=== PATIENT | male | born 1995 | race Caucasian/White ===

== ENCOUNTER 2023-12-23 12:21 | Emergency (ER) | payer OTHER ==
--- NOTE | 2023-12-23 12:48 | ED ---
Abdominal Pain HPI - General Source: patient, family, RN notes reviewed Mode of arrival: ambulatory Limitations: no limitations <Johana Milan - Last Filed: 12/23/23 12:47> <Louie Melendez - Last Filed: 12/23/23 21:16> - General Chief Complaint: Abdominal Pain Stated Complaint: Abdominal Pain Time Seen by Provider: 12/23/23 12:47 - History of Present Illness Initial Comments: Quick note: 28-year-old male presenting to the ER with chief complaint of a hernia. Patient was seen by urgent care recently and diagnosed with an inguinal hernia. He states it has been more painful recently which brought him to the E R. Admits to flatulence and bowel movements. (Johana Milan) Otherwise healthy 28-year-old male presents to the ED with complaints of lower abdominal pain. Patient reports for the past few weeks has had pain of his right lower abdomen near his groin. States that he went to an urgent care 3 days ago and was told he may have a small hernia. Since then, pain has become more constant in nature. Reports pain is also seem to increase in severity. Notes no changes in bowel movements however does note that he is having some urinary hesitancy. Otherwise denies dysuria or hematuria. No fever or chills. Other than the area which she localizes pain, otherwise denies abdominal pain. No nausea or vomiting. No other complaints at this time. (Louie Melendez) - Related Data Previous Rx's Medication Instructions Recorded HYDROcodone/APAP 5-325MG [[place] 5] 1 each PO Q6HR PRN #12 tab 12/23/23 Ondansetron Odt [Zofran Odt] 4 mg PO Q8HR PRN #10 tab 12/23/23 Tamsulosin [Flomax] 0.4 mg PO DAILY #7 cap 12/23/23 Allergies Allergy/AdvReac Type Severity Reaction Status Date / Time No Known Allergies Allergy Verified 01/31/14 12:43 Review of Systems ROS Other: All systems not noted in ROS Statement are negative. <Johana Milan - Last Filed: 12/23/23 12:47> ROS Other: All systems not noted in ROS Statement are negative. <Louie Melendez - Last Filed: 12/23/23 21:16> ROS Statement: Those systems with pertinent positive or pertinent negative responses have been documented in the HPI. Past Medical History Past Medical History: No Reported History History of Any Multi-Drug Resistant Organisms: None Reported Past Surgical History: Orthopedic Surgery Additional Past Surgical History / Comment(s): RT KNEE ACL Past Psychological History: No Psychological Hx Reported Smoking Status: Never smoker Past Alcohol Use History: None Reported, Unable to Obtain Past Drug Use History: None Reported <Johana Milan - Last Filed: 12/23/23 12:47> General Exam Limitations: no limitations <Johana Milan - Last Filed: 12/23/23 12:47> General appearance: alert, in no apparent distress Eye exam: Present: normal appearance Neck exam: Present: normal inspection Respiratory exam: Present: normal lung sounds bilaterally Cardiovascular Exam: Present: regular rate GI/Abdominal exam: Present: soft (No significant tenderness to palpation. In the right inguinal area where patient localizes pain, no large hernia upon Valsalva. No overlying skin changes.) Neurological exam: Present: alert, oriented X3 Skin exam: Present: warm, dry <Louie Melendez - Last Filed: 12/23/23 21:16> - General Exam Comments Initial Comments: Visual Physical Exam Vital signs reviewed General: Well-appearing, nontoxic, no acute distress. Head: Normocephalic, atraumatic Eyes: PERRLA, EOMI ENT: Airway patent Chest: Nonlabored breathing Skin: No visual rash, normal skin tone Neuro: Alert and oriented 3 Musculoskeletal: No gross abnormalities (Johana Milan) Course Vital Signs 12/23/23 12/23/23 12:34 19:00 Temperature 98.0 F 98.2 F Pulse Rate 97 67 Respiratory 16 18 Rate Blood Pressure 150/92 141/88 O2 Sat by Pulse 99 99 Oximetry Medical Decision Making <Johana Milan - Last Filed: 12/23/23 12:47> - Lab Data Result diagrams: 12/23/23 17:02 12/23/23 17:02 <Louie Melendez - Last Filed: 12/23/23 21:16> - Medical Decision Making I performed the quick note portion of this chart. Electronically signed by Johana Milan PA-C (Johana Milan) Was pt. sent in by a medical professional or institution (NATASHA Valdes, WEIGHT REDUCING TECHNICIAN, urgent care, hospital, or shelter...) When possible be specific @ -No Did you speak to anyone other than the patient for history (EMS, parent, family, police, friend...)? What history was obtained from this source @ -No Did you review nursing and triage notes (agree or disagree)? Why? @ -I reviewed and agree with nursing and triage notes Were old charts reviewed (outside hosp., previous admission, EMS record, old EKG, old radiological studies, urgent care reports/EKG's, shelter records)? Report findings @ -No old charts were reviewed Differential Diagnosis (chest pain, altered mental status, abdominal pain women, abdominal pain men, vaginal bleeding, weakness, fever, dyspnea, syncope, headache, dizziness, GI bleed, back pain, seizure, CVA, palpatations, mental health, musculoskeletal)? @ -Differential Abdominal Pain Men: Appendicitis, cholecystitis, diverticulosis, ischemic bowel, pancreatitis, hep atitis, UTI, gastroenteritis, AAA, incarcerated hernia, bowel obstruction, constipation, inflammatory bowel, hepatitis, peptic ulcer disease, splenic infarction, perforated viscus, testicular torsion, this is not meant to be an all-inclusive list EKG interpreted by me (3pts min.). @ -None X-rays interpreted by me (1pt min.). @ -None done CT interpreted by me (1pt min.). @ -CT abdomen pelvis interpreted me which reveals no hernia or evidence of bowel obstruction. Appendix appears normal. There is finding of asymmetric dilation of the right renal pelvis and right ureter. U/S interpreted by me (1pt. min.). @ -Ultrasound interpreted by me which revealed dilation of the right renal pelvis. No masses seen. No evidence of stone. What testing was considered but not performed or refused? (CT, X-rays, U/S, labs)? Why? @ -None What meds were considered but not given or refused? Why? @ -None Did you discuss the management of the patient with other professionals (professionals i.e. NATASHA Valdes, WEIGHT REDUCING TECHNICIAN, lab, RT, psych nurse, social welfare research worker, production mechanic, teacher, commissioned fire officer, family service caseworker)? Give summary @ -No Was smoking cessation discussed for >3mins.? @ -No Was critical care preformed (if so, how long)? @ -No Were there social determinants of health that impacted care today? How? (Homelessness, low income, unemployed, alcoholism, drug addiction, transportation, low edu. Level, literacy, decrease access to med. care, longterm, rehab)? @ -No Was there de-escalation of care discussed even if they declined (Discuss DNR or withdrawal of care, Hospice)? DNR status @ -No What co-morbidities impacted this encounter? (DM, HTN, Smoking, COPD, CAD, Cancer, CVA, ARF, Chemo, Hep., AIDS, mental health diagnosis, sleep apnea, morbid obesity)? @ -None Was patient admitted / discharged? Hospital course, mention meds given and route, prescriptions, significant lab abnormalities, going to OR and other pertinent info. @ -Discharge 28-year-old male presenting to the ED with complaints of lower abdominal pain for the past few weeks however more recently seeming to have worsened in nature. Also noted some urinary hesitancy. Otherwise, no dysuria, hematuria, frequency, urgency. Laboratory studies reviewed. Labs including CBC, CMP, UA unremarkable. CT and ultrasound demonstrated dilation of the right renal pelvis and right ureter possibly consistent with passed stone. At this time, patient reports no significant pain and denied analgesics here in the ED. Patient discharged home with prescriptions for [place], Flomax, Zofran and a urinary strainer. Symptoms possibly due to passed stone. Provided referral to see urology. Discussed return precautions with patient who verbalized agreement. Undiagnosed new problem with uncertain prognosis? @ -No Drug Therapy requiring intensive monitoring for toxicity (Heparin, Nitro, Insulin, Cardizem)? @ -No Were any procedures done? @ -No Diagnosis/symptom? @ -Right lower abdominal pain, urinary hesitancy Acute, or Chronic, or Acute on Chronic? @ -Acute Uncomplicated (without systemic symptoms) or Complicated (systemic symptoms)? @ -Uncomplicated Side effects of treatment? @ -No Exacerbation, Progression, or Severe Exacerbation? @ -No Poses a threat to life or bodily function? How? (Chest pain, USA, GA, pneumonia, PE, COPD, DKA, ARF, appy, cholecystitis, CVA, Diverticulitis, Homicidal, Suicidal, threat to staff... and all critical care pts) @ -No (Louie Melendez) - Lab Data Lab Results 12/23/23 12/23/23 12/23/23 Range/Units 17:02 17:02 17:41 WBC 4.8 (3.8-10.6) k/uL RBC 4.75 (4.30-5.90) m/uL Hgb 15.7 (13.0-17.5) gm/dL Hct 45.0 (39.0-53.0) % MCV 94.7 (80.0-100.0) fL MCH 33.0 (25.0-35.0) pg MCHC 34.9 (31.0-37.0) g/dL RDW 12.7 (11.5-15.5) % Plt Count 244 (150-450) k/uL MPV 7.3 Neutrophils % 56 % Lymphocytes % 32 % Monocytes % 7 % Eosinophils % 2 % Basophils % 1 % Neutrophils # 2.7 (1.3-7.7) k/uL Lymphocytes # 1.5 (1.0-4.8) k/uL Monocytes # 0.3 (0-1.0) k/uL Eosinophils # 0.1 (0-0.7) k/uL Basophils # 0.1 (0-0.2) k/uL Sodium 140 (137-145) mmol/L Potassium 4.4 (3.5-5.1) mmol/L Chloride 105 (98-107) mmol/L Carbon Dioxide 27 (22-30) mmol/L Anion Gap 8 mmol/L BUN 10 (9-20) mg/dL Creatinine 1.04 (0.66-1.25) mg/dL Est GFR (CKD-EPI)AfAm >90 (>60 ml/min/1.73 sqM) Est GFR (CKD-EPI)NonAf >90 (>60 ml/min/1.73 sqM) Glucose 96 (74-99) mg/dL Calcium 9.5 (8.4-10.2) mg/dL Total Bilirubin 0.9 (0.2-1.3) mg/dL AST 101 H (17-59) U/L ALT 247 H (4-49) U/L Alkaline Phosphatase 76 (38-126) U/L Total Protein 7.6 (6.3-8.2) g/dL Albumin 4.7 (3.5-5.0) g/dL Urine Color Colorless Urine Appearance Clear (Clear) Urine pH 7.0 (5.0-8.0) Ur Specific [place] 1.016 (1.001-1.035) Urine Protein Negative (Negative) Urine Glucose (UA) Negative (Negative) Urine Ketones Negative (Negative) Urine Blood Negative (Negative) Urine Nitrite Negative (Negative) Urine Bilirubin Negative (Negative) Urine Urobilinogen <2.0 (<2.0) mg/dL Ur Leukocyte Esterase Negative (Negative) Disposition <Johana Milan - Last Filed: 12/23/23 12:47> Is patient prescribed a controlled substance at d/c from ED?: Yes When asked, does pt state using other controlled substances?: No If prescribed controlled substance>3 days was MAPS reviewed?: Prescribed <3 Days Time of Disposition: 21:16 <Louie Melendez - Last Filed: 12/23/23 21:16> Clinical Impression: Abdominal pain, Urinary hesitancy Disposition: HOME SELF-CARE Condition: Good Additional Instructions: Please return to the Emergency Department if symptoms worsen or any other con cerns. Please follow-up with urology. Prescriptions: Tamsulosin [Flomax] 0.4 mg PO DAILY #7 cap HYDROcodone/APAP 5-325MG [[place] 5] 1 each PO Q6HR PRN #12 tab PRN Reason: Pain Ondansetron Odt [Zofran Odt] 4 mg PO Q8HR PRN #10 tab PRN Reason: Nausea Referrals: None,Stated [Primary Care Provider] - 1-2 days Marin Farias MD [STAFF PHYSICIAN] - 1-2 days
[2023-12-23] MEDS: SODIUM CHLORIDE 0.9% 1,000 ML IV STA (17:00)
[2023-12-23 17:29] LABS: Basophils # (A) 0.1 k/uL (0-0.2); Basophils % (A) 1 %; Eosinophils # (A) 0.1 k/uL (0-0.7); Eosinophils % (A) 2 %; HGB 15.7 gm/dL (13.0-17.5); Lymphocytes # (A) 1.5 k/uL (1.0-4.8); Lymphocytes % (A) 32 %; MCHC 34.9 g/dL (31.0-37.0); MCV 94.7 fL (80.0-100.0); Mean Platelet Volume 7.3; Monocytes # (A) 0.3 k/uL (0-1.0); Monocytes % (A) 7 %; Neutrophils # (A) 2.7 k/uL (1.3-7.7); Neutrophils % (A) 56 %; Platelet Count 244 k/uL (150-450); RBC 4.75 m/uL (4.30-5.90); RDW 12.7 % (11.5-15.5); WBC 4.8 k/uL (3.8-10.6)
[2023-12-23 17:41] LABS: ALT 247 U/L (4-49); AST 101 U/L (17-59); African American GFR (CKD) >90 (>60 ml/min/1.73 sqM); Albumin 4.7 g/dL (3.5-5.0); Alkaline Phosphatase 76 U/L (38-126); Anion Gap 8 mmol/L; Blood Urea Nitrogen 10 mg/dL (9-20); Calcium 9.5 mg/dL (8.4-10.2); Carbon Dioxide 27 mmol/L (22-30); Chloride 105 mmol/L (98-107); Glucose 96 mg/dL (74-99); Non-African American GFR(CKD) >90 (>60 ml/min/1.73 sqM); Potassium 4.4 mmol/L (3.5-5.1); Sodium 140 mmol/L (137-145); Total Bilirubin 0.9 mg/dL (0.2-1.3); Total Protein 7.6 g/dL (6.3-8.2)
[2023-12-23 17:53] LABS: Appearance,Urine Clear (Clear); Bilirubin,Urine Negative (Negative); Blood,Urine Negative (Negative); Color,Urine Colorless; Glucose,Urine (UA) Negative (Negative); Ketones,Urine Negative (Negative); Leukocyte Esterase,Urine Negative (Negative); Nitrite,Urine Negative (Negative); Protein,Urine Negative (Negative); Specific Gravity,Urine 1.016 (1.001-1.035); Urobilinogen,Urine <2.0 mg/dL (<2.0)
--- NOTE | 2023-12-23 18:55 | CT ---
EXAMINATION TYPE: CT abdomen pelvis w con CT DLP: 1186.7 mGycm, Automated exposure control for dose reduction was used. DATE OF EXAM: 12/23/2023 6:17 PM COMPARISON: None CLINICAL INDICATION:Male, 28 years old with history of r/o r inguinal hernia strangulation/incarcerat ion; r/o r inguinal hernia strangulation/incarceration TECHNIQUE: Axial CT abdomen pelvis w con;Sagittal and coronal reformats were created on a separate w orkstation. Contrast used:100ml mL of Isovue 300 with IV Contrast, (none if empty) Oral contrast used: without Oral Contrast (none if empty) FINDINGS: LOWER CHEST: Unremarkable ABDOMEN LIVER: Unremarkable GALLBLADDER AND BILE DUCTS: Unremarkable. PANCREAS: Unremarkable. SPLEEN: Unremarkable. ADRENAL GLANDS: Unremarkable. KIDNEYS AND URETERS: Mild asymmetric dilation of the right collecting system compared to the left. No obstructing calculus definitively visualized. No evidence for left PELVIS BLADDER: Unremarkable REPRODUCTIVE: Unremarkable. ABDOMEN & PELVIS STOMACH AND BOWEL: No evidence of bowel obstruction. PERITONEUM/RETROPERITONEUM: No evidence of pneumoperitoneum or free fluid. VASCULATURE: No evidence of aortic aneurysm. MUSCULOSKELETAL: No acute osseous abnormalities LYMPH NODES: No gross evidence for lymphadenopathy. SOFT TISSUE/ABDOMINAL WALL: No inguinal hernias identified. The gallbladder is within normal limits. IMPRESSION: 1. No hernia is identified. No evidence for bowel obstruction. The appendix is normal. 2. Asymmetric dilation of the right renal pelvis and right ureter. Correlate for recently passed sto ne. No calculi visualized.
[2023-12-23 19:17] VITALS: PULSE 67; RESP 18; TEMP 98.2
--- NOTE | 2023-12-23 20:18 | US ---
EXAMINATION TYPE: US renals and bladder DATE OF EXAM: 12/23/2023 COMPARISON: CT same day CLINICAL INDICATION: Male, 28 years old with history of r renal pelvis dilation; f/u to ct scan EXAM MEASUREMENTS: Right Kidney: 9.2 x 4.4 x 4.7 cm Left Kidney: 9.7 x 4.8 x 5.0 cm Right Kidney: No hydronephrosis or masses seen Left Kidney: No hydronephrosis or masses seen Bladder: anechoic Bilateral Jets seen: no There is no evidence for hydronephrosis at this point in time. No nephrolithiasis is seen. No niels s are identified. The urinary bladder is anechoic. Increased echotexture of the liver parenchyma. IMPRESSION: 1. Dilation of the right renal pelvis was completely evaluated on same day CT. No difference in find ings on ultrasound, in fact it is better appreciated on CT compared ultrasound. 2. Hepatic steatosis.
[2023-12-23 22:38] VITALS: BP 129/78
== END 2023-12-23 21:24 | disposition home or self-care (01) ==
LOC: EC 12:21
DX: R10.31 Right lower quadrant pain (principal); R39.11 Hesitancy of micturition
CPT/HCPCS: 36415; 80053; 85025; 81003; 76770; 74177; 99284; 96360; Q9967